=== PATIENT | male | born 1945 | race Caucasian/White ===

== ENCOUNTER 2017-11-12 13:32 | Emergency (ER) | payer MEDICARE ==
[2017-11-12 14:09] VITALS: TEMP 97.6
--- NOTE | 2017-11-12 14:36 | ED.PDOC ---
History of Present Illness - General Chief Complaint: Upper Extremity Injury Stated Complaint: non healing wound left elbow Time Seen by Provider: 11/12/17 14:30 Source: patient Exam Limitations: no limitations - History of Present Illness Initial Comments: Erick Santos 72 y/o male seen today with non healing laceration left ante cubital area elbow after slip/and fell at home.Took amoxicillin but stated not healed.Denies history of diabetes. Occurred: other - 27 days ago Severity: moderate Injuries/Pain Location: other - see hpi Reason for Fall: slipped Loss of Consciousness: no loss of consciousness Improving Factors: nothing Worsening Factors: nothing Associated Symptoms (Fall): denies symptoms, other - see hpi Allergies/Adverse Reactions: Allergies NO KNOWN ALLERGY Allergy (Verified 10/26/14 11:49) Home Medications: Ambulatory Orders Atorvastatin Calcium [Lipitor] 80 mg PO DAILY 10/26/14 Ezetimibe [Zetia] 10 mg PO DAILY 10/26/14 Hydrochlorothiazide 25 mg PO DAILY 10/26/14 Permethrin [Elimite] 60 gm EX ONCE #1 cre 10/26/14 Mupirocin 2 % Oint [Bactroban Oint] 22 gm TOP BID #1 tube 11/12/17 levoFLOXacin [Levaquin] 500 mg PO DAILY #10 tab 11/12/17 Review of Systems - Review of Systems Constitutional: States: no symptoms reported EENTM: States: no symptoms reported Respiratory: States: no symptoms reported Skin: States: see HPI All other Systems: Reviewed and Negative, No Change from Baseline Past Medical History (General) - Patient Medical History Hx Seizures: No Hx Stroke: No Hx Dementia: No Hx Asthma: No Hx of COPD: No Hx Cardiac Disorders: Yes - cad Hx Congestive Heart Failure: No Hx Pacemaker: No Hx Hypertension: No Hx Thyroid Disease: No Hx Diabetes: No Hx Gastroesophageal Reflux: No Hx Renal Disease: No Hx Cancer: No Hx of HIV: No Hx Hepatitis C: No Hx MRSA: No Surgical History: angioplasty - Vaccination History Hx Tetanus, Diphtheria Vaccination: Yes Hx Influenza Vaccination: Yes Hx Pneumococcal Vaccination: Yes Immunizations Up to Date: Yes - Social History Hx Tobacco Use: Yes Hx Chewing Tobacco Use: No Hx Alcohol Use: Yes - daily Hx Substance Use: No Hx Substance Use Treatment: No Hx Depression: No Feels Threatened In Home Enviroment: No Feels Threatened In a Relationship: No Hx Physical Abuse: No Hx Emotional Abuse: No Hx Suspected Abuse: No - Female History Patient : No Physical Exam - Physical Exam General Appearance: Alert, Comfortable, No apparent distress Head Injury: no evidence of injury Eye Exam: bilateral normal ENT Exam: hearing grossly normal, no evidence of ENT injury, no dental injury Peripheral Pulses: radial,right: 2+, radial,left: 2+ Cardiovascular/Respiratory: regular rate, rhythm, no M/R/G, normal peripheral pulses, no JVD, normal breath sounds Gastrointestinal/Abdominal: normal bowel sounds, non tender, soft, no organomegaly Back Exam: no vertebral tenderness Extremity Exam: no evidence of injury, non-tender Neurologic: alert, oriented x 3 Skin Exam: normal color, warm/dry, other - non healing skin laceration left elbow - Catie Coma Score Best Eye Response ([place]): (4) open spontaneously Best Verbal Response ([place]): (5) oriented Best Motor Response ([place]): (6) obeys commands Progress - Progress Progress: 11/12/17 14:45 Last Vital Signs Temp 97.6 F 11/12/17 14:02 Pulse 70 11/12/17 14:02 Resp 18 11/12/17 14:02 BP 123/69 11/12/17 14:02 Pulse Ox 94 L 11/12/17 14:02 - EKG/XRAY/CT XRAY: elbow - left no fracture Departure - Departure Clinical Impression: Infected laceration of skin Time of Disposition: 15:23 Disposition: Discharge to Home or Self Care Departure Forms: ED Discharge - Pt. Copy, Patient Portal Self Enrollment Instructions: DI for Wound Infection Prescriptions: levoFLOXacin [Levaquin] 500 mg PO DAILY #10 tab Mupirocin 2 % Oint [Bactroban Oint] 22 gm TOP BID #1 tube Home Medications: Ambulatory Orders Atorvastatin Calcium [Lipitor] 80 mg PO DAILY 10/26/14 Ezetimibe [Zetia] 10 mg PO DAILY 10/26/14 Hydrochlorothiazide 25 mg PO DAILY 10/26/14 Permethrin [Elimite] 60 gm EX ONCE #1 cre 10/26/14 Mupirocin 2 % Oint [Bactroban Oint] 22 gm TOP BID #1 tube 11/12/17 levoFLOXacin [Levaquin] 500 mg PO DAILY #10 tab 11/12/17 Additional Instructions: Follow up with primary 11/15/2017 Addendum entered and electronically signed by Willie Broussard MD 11/12/17 21 :53: Departure - Departure Clinical Impression: Infected laceration of skin Time of Disposition: 15:30 Disposition: Discharge to Home or Self Care Departure Forms: ED Discharge - Pt. Copy, Patient Portal Self Enrollment Instructions: DI for Wound Infection Prescriptions: levoFLOXacin [Levaquin] 500 mg PO DAILY #10 tab Mupirocin 2 % Oint [Bactroban Oint] 22 gm TOP BID #1 tube Home Medications: Ambulatory Orders Atorvastatin Calcium [Lipitor] 80 mg PO DAILY 10/26/14 Ezetimibe [Zetia] 10 mg PO DAILY 10/26/14 Hydrochlorothiazide 25 mg PO DAILY 10/26/14 Permethrin [Elimite] 60 gm EX ONCE #1 cre 10/26/14 Mupirocin 2 % Oint [Bactroban Oint] 22 gm TOP BID #1 tube 11/12/17 levoFLOXacin [Levaquin] 500 mg PO DAILY #10 tab 11/12/17 Additional Instructions: Follow up with primary 11/15/2017
--- NOTE | 2017-11-12 15:10 | RAD ---
EXAM DESCRIPTION: Elbow,Left 2 Views CLINICAL HISTORY: swelling COMPARISON: None. IMPRESSION: 2 views of the left elbow shows no definite evidence of acute fracture or dislocation. Soft tissue swelling and subcutaneous air suggesting laceration and soft tissue edema over the olecranon is seen. Correlate with clinical findings. There does appear to be mild elevation of the anterior posterior distal humerus fat pad suggesting joint effusion. Small osseous densities are seen in the soft tissue posterior to the olecranon. Electronically signed by: Giovanni Monroy MD 11/12/2017 3:09 PM [facility]
[2017-11-12 16:01] VITALS: BP 127/83; O2SAT 100
== END 2017-11-12 15:35 | disposition home or self-care (01) ==
LOC: ER 13:32
DX: S51.012A Laceration without foreign body of left elbow, initial encounter (principal); L08.9 Local infection of the skin and subcutaneous tissue, unspecified; I25.10 Atherosclerotic heart disease of native coronary artery without angina pectoris; Z98.61 Coronary angioplasty status; Z87.891 Personal history of nicotine dependence; W19.XXXA Unspecified fall, initial encounter; Y92.9 Unspecified place or not applicable